=== PATIENT | male | born 1980 | race African-American/Black ===

== ENCOUNTER 2018-09-03 01:06 | Emergency (ER) | payer BC, MEDICAID ==
[~2018-09-03] VITALS: Ht 170.2 cm; Wt 70.3 kg
[~2018-09-03 01:06] MED LIST: IBUPROFEN600 MG ORAL; NKM; NORCO 5-325 TA1 EACH ORAL; NYSTATIN100000 UN1 PO
[2018-09-03 01:18] VITALS: BP 138/85
--- NOTE | 2018-09-03 01:18 | NUR ---
ED Nurse Note: pt came to ED c/o sciatic nerve pain x3 days. ao4. nad. vss
[2018-09-03] MEDS ORDERED: Ketorolac 60mg Inj IM ONE ×2 (01:25→01:30)
[2018-09-03] MEDS ORDERED: IBUPROFEN600 MG ORAL (01:27)
[2018-09-03] MEDS ORDERED: PREDNISONE20 MG ORAL (01:27)
[2018-09-03] MEDS ORDERED: HYDROCODON-ACE1 EA15 ORAL (01:27)
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
[2018-09-03 01:30] VITALS: BP 138/85
--- NOTE | 2018-09-03 01:30 | NUR ---
ER DISCHARGE NOTE: Patient is cleared to be discharged per ERMD, pt is aox4, on room air, with stable vital signs. pt was given dc and prescription instructions, pt was able to verbalize understanding, pt id band removed. pt is able to ambulate with steady gait. pt took all belongings.
== END 2018-09-03 01:30 | disposition home or self-care (01) ==
LOC: EMR 01:26
DX: M54.42 Lumbago with sciatica, left side (principal); Z88.0 Allergy status to penicillin
CPT/HCPCS: 99282

== ENCOUNTER 2018-10-07 21:20 | Emergency (ER) | payer BC ==
[~2018-10-07] VITALS: Ht 170.2 cm; Wt 71.7 kg
[~2018-10-07 21:20] MED LIST changes: +HYDROCODON-ACE1 EA15 ORAL; +PREDNISONE20 MG ORAL
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
[2018-10-07 21:35] VITALS: BP 148/94
--- NOTE | 2018-10-07 21:35 | NUR ---
ED Nurse Note: Pt arrived ED from home, c/o fell 1 day ago at home with right hand hited on the ground and pain 9/10. Pt is A/O X4. Vital signs stable at this time, waiting for orders.
--- NOTE | 2018-10-07 21:37 | NUR ---
ED Nurse Note: Meds given as ordered.
[2018-10-07] MEDS ORDERED: IBUPROFEN600 MG ORAL (21:54)
[2018-10-07 22:04] VITALS: BP 142/91
--- NOTE | 2018-10-07 22:04 | NUR ---
ER DISCHARGE NOTE: Patient is cleared to be discharged per Dr. Leslie. Pt is aox4 on room air with stable vital signs. Pt was given dc and prescription instructions and was able to verbalize understanding. Pt's ID band removed. Pt is able to ambulate with steady gait and took all belongings.
--- NOTE | 2018-10-08 12:44 | Diagnostic Imaging Report ---
Indication: Right hand pain Findings: 3 views of the right hand were obtained. Normal bony mineralization and alignment are demonstrated. No acute fractures, erosions, or periosteal reaction are seen. Soft tissues are unremarkable. Impression: No acute findings.
== END 2018-10-07 22:04 | disposition home or self-care (01) ==
LOC: EMR 21:36
DX: S60.221A Contusion of right hand, initial encounter (principal); W22.8XXA Striking against or struck by other objects, initial encounter; Y92.9 Unspecified place or not applicable
CPT/HCPCS: 29125; 99283

== ENCOUNTER 2018-10-26 14:41 | Emergency (ER) | payer BC ==
[~2018-10-26] VITALS: Ht 170.2 cm; Wt 72.6 kg
--- NOTE | 2018-10-26 15:24 | Emergency Room Report ---
History of Present Illness General Chief Complaint: Upper Extremity Injury Source: Patient (Stephanie Rivers) Present Illness HPI 38-year-old male with no significant past medical history here complaining of pain on left third digit x2 weeks. Patient was here 2 weeks ago due to fall and hurting his right hand which was diagnosed with right hand contusion he also reports that he also hurt his left time but was not as painful. Has not been. Rating it 3 out of 10 upon palpation without radiation. Denies tingling and numbness. Denies any new injury. There has been no local neuro or motor deficit noted. No bony tenderness noted. Denies chest pain, shortness of breath, palpitation, abdominal pain, no other associated symptoms. (Stephanie Rivers) Allergies: Coded Allergies: No Known Allergies (Unverified , 10/07/18) Patient History Past Medical History: see triage record Past Surgical History: unable to obtain Pertinent Family History: none Immunizations: UTD Reviewed Nursing Documentation: PMH: Agreed; PSxH: Agreed (Stephanie Rivers) Nursing Documentation-PMH Past Medical History: No Stated History (Stephanie Rivers) Review of Systems All Other Systems: negative except mentioned in HPI (Stephanie Rivers) Physical Exam Vital Signs Date Time Temp Pulse Resp B/P (MAP) Pulse Ox O2 Delivery O2 Flow Rate FiO2 10/26/18 14:54 98.2 58 16 153/92 (112) 98 Room Air Sp02 EP Interpretation: reviewed, normal General Appearance: normal inspection, well appearing, no apparent distress Head: normocephalic, atraumatic Eyes: bilateral eye normal inspection, bilateral eye PERRL ENT: normal ENT inspection, hearing grossly normal, normal pharynx Neck: full range of motion, supple, no meningismus, supple/symm/no masses Respiratory: normal inspection, chest non-tender, lungs clear, no rhonchi Cardiovascular #1: normal inspection, regular rate, rhythm, no edema, no gallop , no murmur Cardiovascular #2: 2+ radial (R), 2+ radial (L) Gastrointestinal: normal inspection, non tender, soft Musculoskeletal: normal inspection, back normal, digits/nails normal, gait/ station normal, normal range of motion, non-tender Neurologic: normal inspection, alert, oriented x3 Psychiatric: normal inspection, judgement/insight normal Skin: no rash, normal color Lymphatic: normal inspection, no adenopathy (Stephanie Rivers) Procedures Splinting Splinting : Consent: Verbal Pre-Made Type: metal Pre-Proc Neuro Vasc Exam: normal Post-Proc Neuro Vasc Exam: normal Patient Tolerated: Well Complications: None (Stephanie Rivers) Medical Decision Making PA Attestation Diagnosis and treatment plans were reviewed and discussed with my supervising physician Dr. Brasher (Stephanie Rivers) Medicare Attestation I discussed the care with Stephanie OBANDO on 10/26/2018. I agree with the findings and plan as documented in the note. (Shravan Brasher M.D.) Diagnostic Impression: Primary Impression: Finger contusion ER Course 38-year-old male with no significant past medical history here complaining of pain on left third digit x2 weeks. Patient was here 2 weeks ago due to fall and hurting his right hand which was diagnosed with right hand contusion he also reports that he also hurt his left time but was not as painful. Has not been. Rating it 3 out of 10 upon palpation without radiation. Denies tingling and numbness. Denies any new injury. There has been no local neuro or motor deficit noted. No bony tenderness noted. Denies chest pain, shortness of breath, palpitation, abdominal pain, no other associated symptoms. Ddx considered but are not limited to: Finger contusion, sprain, fracture, strain Vital signs: are WNL, pt. is afebrile H&PE are most consistent with : Finger contusion ORDERS: Hand x-ray, to be profound ED INTERVENTIONS: Metal splint DISCHARGE: At this time pt. is stable for d/c to home. Will provide printed patient care instructions, and any necessary prescriptions. Care plan and follow up instructions have been discussed with the patient prior to discharge. Follow-up with your primary care provider (Stephanie Rivers) Other X-Ray Diagnostic Results Other X-Ray Diagnostic Results : X-Ray ordered: Finger # of Views/Limited Vs Complete: 3 View Indication: Pain EP Interpretation: Yes PA Xray: Interpretation reviewed Interpretation: no dislocation, no soft tissue swelling, no fractures Impression: No acute disease Electronically Signed by: Stephanie Govea PA-C (Stephanie Rivers) Last Vital Signs Date Time Temp Pulse Resp B/P (MAP) Pulse Ox O2 Delivery O2 Flow Rate FiO2 10/26/18 14:54 98.2 58 16 153/92 (112) 98 Room Air (Stephanie Rivers) Disposition: HOME, SELF-CARE Condition: Stable Scripts Ibuprofen* (MOTRIN*) 600 Mg Tablet 600 MG ORAL Q6H PRN for For Pain, #30 TAB 0 Refills Prov: Stephanie Rivers 10/26/18 Patient Instructions: Contusion, [id number] Additional Instructions: Avoid strenuous physical activity with the affected side, alternate between icing the affected area follow-up with your primary care provider take medication as directed Stephanie Rivers Oct 26, 2018 15:24 Shravan Brasher M.D. Oct 27, 2018 11:20
[2018-10-26] MEDS ORDERED: IBUPROFEN600 MG ORAL (15:25)
--- NOTE | 2018-10-26 15:30 | NUR ---
ER DISCHARGE NOTE:finger splint was placed on right middle finger Patient is cleared to be discharged per ERMD, pt is aox4, on room air, with stable vital signs. pt was given dc and prescription instructions, pt was able to verbalize understanding. pt is able to ambulate with steady gait. pt took all belongings.
[2018-10-26 15:31] VITALS: BP 153/92
[2018-10-26 15:48] VITALS: BP 153/92
--- NOTE | 2018-10-27 14:30 | Diagnostic Imaging Report ---
Indication: left hand pain. Comparison: None Findings: 3 views of the left hand were obtained. Normal alignment is demonstrated. No acute fractures, erosions, or periosteal reaction are seen. Soft tissues are unremarkable. Impression: No acute findings.
== END 2018-10-26 15:30 | disposition home or self-care (01) ==
LOC: EMR 15:30
DX: S60.032A Contusion of left middle finger without damage to nail, initial encounter (principal); W19.XXXA Unspecified fall, initial encounter; Y92.9 Unspecified place or not applicable
CPT/HCPCS: 29130; 99283